=== PATIENT | male | born 1960 | race Caucasian/White ===

== ENCOUNTER 2020-08-17 10:28 | Outpatient (CLI) | payer OTHER, SELFPAY | END 2020-08-17 10:29 | disposition home or self-care (01) | LOC: ANHCOVIDVC 10:28 | PROVIDERS: PCP Family Medicine | DX: Z23 Encounter for immunization (principal) | CPT/HCPCS: 0001A; 91300 ==

== ENCOUNTER 2020-09-07 10:23 | Outpatient (CLI) | payer OTHER, SELFPAY | END 2020-09-07 10:24 | disposition home or self-care (01) | LOC: ANHCOVIDVC 10:23 | PROVIDERS: PCP Family Medicine | DX: Z23 Encounter for immunization (principal) | CPT/HCPCS: 0002A; 91300 ==

== ENCOUNTER 2022-08-31 00:08 | Day surgery (SDC) | payer BC, SELFPAY ==
[2022-08-21 14:03] VITALS: BMI 48.2
--- NOTE | 2022-08-30 12:48 | PM.HPGS ---
History of Present Illness History of Present Illness Consent: Risks, benefits, and alternatives have been discussed and questions answered. Patient agrees to proceed with procedure. Chief complaint: hx of colon polyps Narrative: Qasim Murillo is a 62 year old male Referred for colon cancer screening. About 5 years ago he had removal of 4 polyps. Review of Systems Review of Systems: All systems reviewed & are unremarkable except as noted in HPI and below PMFSH Past Medical History Medical History BMI 40.0-44.9, adult BMI 45.0-49.9, adult BMI 50.0-59.9, adult Colon polyp Elevated glucose Essential hypertension Gout, unspecified Mixed hyperlipidemia Screen for colon cancer Screening for prostate cancer Family History Family History Father Hypertension Malignant neoplasm of prostate Family history of lung cancer Family history of colonic diverticulitis Sibling Hypertension Family history of malignant neoplasm of thyroid Family history of malignant neoplasm of breast in first degree relative Social History Social History Smoking status: Never smoker Alcohol intake: current Drinks per week: 30 Substance use type: does not use Lack of Transportation: No Lack of Food: Never True Current Housing: I Have Housing Concerned About Future Housing: No Difficulty Paying Gas/Electric Bills: No Difficulty Paying for Meds: No Currently Unemployed: No Education: High School Diploma/GED Difficulty w/ Childcare or Family Care: No Living arrangements: with family Spiritual care concerns: No Meds Home Medications and Allergies Home Medications Medication Instructions Recorded Confirmed Type allopurinol 300 mg tablet 300 mg PO DAILY #90 tabs 05/23/22 08/31/22 Rx lisinopril 20 1 tablet PO BID #180 tabs 05/23/22 08/31/22 Rx mg-hydrochlorothiazide 12.5 mg tablet metoprolol tartrate 100 mg tablet 100 mg PO Q12H #180 tabs 05/23/22 08/31/22 Rx Allergies Allergy/AdvReac Type Severity Reaction Status Date / Time No Known Allergies Allergy Verified 08/31/22 06:22 Exam Const: General: alert and obese Orientation/consciousness: patient oriented x3 Resp: Auscultation: clear to auscultation bilaterally Cardio: Rhythm: regular rhythm GI: GI Palp: Yes Soft to palpation and No Tenderness to palpation present (GI) Neuro: General: patient oriented x3 Assessment and Plan Assessment and plan (1) Screen for colon cancer: Code(s): Z12.11 - Encounter for screening for malignant neoplasm of colon Status: Acute Assessment and Plan: Colonoscopy with possible biopsy or polypectomy or cautery or injection of substances.
[2022-08-31 06:24] VITALS: BP 172/93; PULSE 77; RESP 18; TEMP 36.3; O2SAT 97
[2022-08-31] MEDS: LACTATED RINGERS 1,000 ML 150 ML IV CONT (06:45)
--- NOTE | 2022-08-31 06:51 | WPDANESEPPF ---
Anes - Initial Pre Proc Eval Procedure: Operation Date: 08/31/22 07:30 Proposed Procedures p Screening Colonoscopy - Jer Lozada MD Date/Time: 08/31/22 06:51 Surgeon: Jer Lozada MD Pre Op Diagnosis: hx of colon polyps Patient Data Age: 62 Gender: M Height: 1.75 m Weight: 154 kg Last Vital Signs Temp 36.3 C L 08/31/22 06:24 Pulse 77 08/31/22 06:24 Resp 18 08/31/22 06:24 BP 172/93 H 08/31/22 06:24 Pulse Ox 97 08/31/22 06:24 O2 Del Method Room Air 08/31/22 06:24 Allergies Allergy/AdvReac Type Severity Reaction Status Date / Time No Known Allergies Allergy Verified 08/31/22 06:22 Home Medications Medication Instructions Recorded Confirmed Type allopurinol 300 mg tablet 300 mg PO DAILY #90 tabs 05/23/22 08/31/22 Rx lisinopril 20 1 tablet PO BID #180 tabs 05/23/22 08/31/22 Rx mg-hydrochlorothiazide 12.5 mg tablet metoprolol tartrate 100 mg tablet 100 mg PO Q12H #180 tabs 05/23/22 08/31/22 Rx Patient hx anesthesia problems: none Family hx anesthesia problems: none Results Review: All pre-operative results and documents have been reviewed as part of the pre-operative evaluation. [facility] Past Medical History Medical History (Updated 05/21/22 @ 16:41 by Narendra Velasquez MD) BMI 40.0-44.9, adult BMI 45.0-49.9, adult BMI 50.0-59.9, adult Colon polyp Elevated glucose Essential hypertension Gout, unspecified Mixed hyperlipidemia Screen for colon cancer Screening for prostate cancer Family History Family History Father Hypertension Malignant neoplasm of prostate Family history of lung cancer Family history of colonic diverticulitis Sibling Hypertension Family history of malignant neoplasm of thyroid Family history of malignant neoplasm of breast in first degree relative Social History Social History Smoking status: Never smoker Alcohol intake: current Drinks per week: 30 Substance use type: does not use Lack of Transportation: No Lack of Food: Never True Current Housing: I Have Housing Concerned About Future Housing: No Difficulty Paying Gas/Electric Bills: No Difficulty Paying for Meds: No Currently Unemployed: No Education: High School Diploma/GED Difficulty w/ Childcare or Family Care: No Living arrangements: with family Spiritual care concerns: No Anes - Eval Final PreProcedure Day of Procedure 08/31/22 06:51 Patient weight: super morbidly obese Heart: regular rate and rhythm Lungs: clear to auscultation Airway: Mallampati scale class II Neurological: alert and oriented Last oral intake: >/= 8 hours ASA classification: III Emergent: no Anesthetic plan: proceed Anesthesia type and monitoring: general GIVS and standard monitoring Results Review: All pre-operative results and documents have been reviewed as part of the pre-operative evaluation. Informed Consent: The patient's anesthetic plan and its attendant risks and benefits were discussed with the patient/family/POA. Questions were solicited and answers provided to the satisfaction of the patient/family/POA.
[2022-08-31 07:47] VITALS: BP 127/80; PULSE 76; RESP 30; O2SAT 97
[2022-08-31 07:57] VITALS: BP 130/83; PULSE 73; RESP 21; O2SAT 97
[2022-08-31 08:05] VITALS: BP 139/94; PULSE 72; RESP 33; O2SAT 96
== END 2022-08-31 08:12 | disposition home or self-care (01) ==
PROVIDERS: PCP Family Medicine; Visit Provider Internal Medicine Gastroenterology
PROC: 0DJD8ZZ Inspection of Lower Intestinal Tract, Via Natural or Artificial Opening Endoscopic (ICD-10-PCS; CPT 45378; principal; 2022-08-31 07:30)
DX: Z12.11 Encounter for screening for malignant neoplasm of colon (principal); K57.30 Diverticulosis of large intestine without perforation or abscess without bleeding; D17.5 Benign lipomatous neoplasm of intra-abdominal organs; D12.0 Benign neoplasm of cecum; D12.2 Benign neoplasm of ascending colon; I10 Essential (primary) hypertension; E78.2 Mixed hyperlipidemia; M10.9 Gout, unspecified; E66.01 Morbid (severe) obesity due to excess calories; Z68.43 Body mass index [BMI] 50.0-59.9, adult
CPT/HCPCS: 45385; 88305; J2704; J7120

== ENCOUNTER → 2022-11-07 12:49 | Outpatient (CLI) | payer BC, SELFPAY ==
--- NOTE | ~2022-11-07 | US_ITS ---
EXAMINATION: US thyroid DATE: 11/07/2022 13:06 INDICATION: Localized swelling, mass or lump at the neck TECHNIQUE: Multiple ultrasound images of the thyroid were obtained. COMPARISON: None. FINDINGS: The right thyroid lobe measures 4.0 x 1.4 x 2.4 cm. The left thyroid lobe measures 4.0 x 1.5 x 2.0 c m. Thyroid isthmus measures up to 3 mm maximal thickness. No discrete nodules identified. There is n ormal echotexture, echogenicity and vascular flow throughout the thyroid gland. IMPRESSION: 1. Normal thyroid ultrasound. Reviewed, dictated and finalized at location B.
== END ==
PROVIDERS: PCP Family Medicine; Visit Provider Family Medicine
DX: R22.1 Localized swelling, mass and lump, neck (principal)
CPT/HCPCS: 76536